=== PATIENT | female | born 1950 | race Two or more races ===

== ENCOUNTER 2022-11-18 19:04 | Emergency (ER) | payer MEDICARE, OTHER ==
[~2022-11-18] VITALS: Ht 160 cm; Wt 78.9 kg
--- NOTE | 2022-11-18 19:48 | NUR ---
BIBRA 38 FROM HOME FOR N/V, DIZZINESS AND HIGH BP X 1 WEEK. PT AAOX4, W/ NAUSEA, EMESIS X1 ON ARRIVAL TO ER. PLACED COMFORTABLY IN BED, VITALS CHECKED.
--- NOTE | 2022-11-18 20:00 | NUR ---
XR AT BEDSIDE
[2022-11-18] MEDS ORDERED: ONDANSETRON HCL/PF 4 MG/2 ML VIAL ONE (20:17)
--- NOTE | 2022-11-18 20:20 | NUR ---
20GA TO LEFT AC ESTABLISHED
--- NOTE | 2022-11-18 20:21 | NUR ---
BLOOD WORK COLLECTED AND SENT TO LAB
[2022-11-18] MEDS ORDERED: IV NS 0.9% 1,000 ML BAG IV ONE (20:30)
[2022-11-18] MEDS ORDERED: MECLIZINE HCL 12.5 MG TABLET PO ONE (20:30)
[2022-11-18] MEDS ORDERED: ONDANSETRON HCL/PF - ER 4 MG/2 ML VIAL IV ONE (20:30)
[2022-11-18 20:32] LABS: BASOPHILS % (AUTO) 0.2 % (0.0-2.0); EOSINOPHILS % (AUTO) 0.5 % (0.0-6.0); HEMATOCRIT 41 % (33-45); HEMOGLOBIN 13.5 g/dL (11.5-14.8); LYMPHOCYTES % (AUTO) 16.5 % (20.0-44.0); MEAN CORPUSCULAR HGB CONC 33 g/dl (31.0-36.0); MEAN CORPUSCULAR VOLUME 88 fL (82-100); MONOCYTES # (AUTO) 0.3 K/uL (0.1-1.30); MONOCYTES % (AUTO) 2.6 % (2.0-12.0); NEUTROPHILS # (AUTO) 9.6 K/uL (1.8-8.9); NEUTROPHILS % (AUTO) 80.2 % (43.0-81.0); PLATELET COUNT (AUTO) 247 K/uL (150-450)
[2022-11-18] MEDS ORDERED: MECLIZINE HCL 25 MG TABLET ONE (20:35)
--- NOTE | 2022-11-18 20:35 | NUR ---
TO CT W/ TECH
--- NOTE | 2022-11-18 20:49 | NUR ---
RETURNED FROM CT
[2022-11-18 21:01] LABS: ALANINE AMINOTRANSFERASE 27 U/L (12-78); ALBUMIN 4.2 g/dL (3.4-5.0); ALKALINE PHOSPHATASE 71 U/L (46-116); ASPARTATE AMINOTRANSFERASE 20 U/L (15-37); BILIRUBIN,DIRECT 0.1 mg/dL (0.0-0.2); BILIRUBIN,TOTAL 0.4 mg/dL (0.2-1.0); CALCIUM, SERUM 9.3 mg/dL (8.5-10.1); CARBON DIOXIDE 31 mmol/L (21-32); CHLORIDE 103 mmol/L (98-107); CREATININE 0.9 mg/dL (0.6-1.3); GLUCOSE 151 mg/dL (74-106); POTASSIUM 3.9 mmol/L (3.5-5.1); SODIUM SERUM 142 mmol/L (136-145); TOTAL PROTEIN, SERUM 7.6 g/dL (6.4-8.2); UREA NITROGEN, BLOOD 14 mg/dL (7-18)
--- NOTE | 2022-11-18 21:53 | NUR ---
COVID SWAB DONE AND SENT TO LAB
--- NOTE | 2022-11-18 22:00 | NUR ---
URINE COLLECTED AND SENT TO LAB
[2022-11-18 23:14] LABS: BILIRUBIN,URINE NEGATIVE (NEGATIVE); COLOR,URINE YELLOW (YELLOW); LEUKOCYTE ESTERASE ,URINE NEGATIVE (NEGATIVE); NITRITE, URINE NEGATIVE (NEGATIVE); PH,URINE 7.5 (5.0-8.0); PROTEIN,URINE TRACE mg/dl (NEGATIVE); UGLUCOSE NEGATIVE (NEGATIVE); UROBILINOGEN,URINE 0.2 EU/dL (0.2)
[2022-11-18 23:18] LABS: BACTERIA,URINE Rare /HPF (None Seen); RBC,URINE 0-2 /HPF (0-2); SQUAMOUS EPITHELIAL CELL,UR Few /HPF (None Seen); WBC,URINE 0-2 /HPF (0-3)
[2022-11-18] MEDS ORDERED: AZIT250T13 PO (23:25)
[2022-11-18] MEDS ORDERED: ONDA4TAB11 PO (23:25)
[2022-11-18 23:29] VITALS: BP 135/90
--- NOTE | 2022-11-18 23:29 | NUR ---
Patient discharged to home in stable condition. Written and verbal after care instructions given. Patient verbalizes understanding of instruction.
== END 2022-11-18 23:36 | disposition home or self-care (01) ==
LOC: ER 19:07 → EDSEX 19:07 → ER 23:36
DX: J18.9 Pneumonia, unspecified organism (principal); R42 Dizziness and giddiness; R11.2 Nausea with vomiting, unspecified; I10 Essential (primary) hypertension; Z79.899 Other long term (current) drug therapy; Z20.822 Contact with and (suspected) exposure to COVID-19
CPT/HCPCS: 99285; 96374; 70450; 71045; 96361; 87426; 93005; 85025; 80048; 80076; 81001; 36415; 84484 ×2; J8597; J2405; J7030; C9803